=== PATIENT | male | born 1945 | race Caucasian/White ===

== ENCOUNTER → 2019-02-15 12:16 | Outpatient (ROUT) | payer OTHER, SELFPAY ==
[2019-02-15 12:21] LABS: Bacteria Urine None Seen
[2019-02-15 12:40] LABS: Add Manual Diff / Slide Review NO; Basophils Absolute Auto 0 /uL (0-100); Basophils Percent Auto 0.4 % (0-2); Blood Urea Nitrogen 14 mg/dL (9-20); Calcium 9.4 mg/dL (8.4-10.2); Carbon Dioxide 25 mmol/L (22-32); Chloride 103 mmol/L (98-107); Eosinophils Absolute Auto 100 /uL (0-450); Eosinophils Percent Auto 1.3 % (2-4); Estimated Glomerular Filt Rate > 60.0 mL/min (>60); Glucose 144 mg/dL (80-110); HEMOLYSIS < 15 (0-50); Hematocrit 43.6 % (41-53); Hemoglobin 14.8 g/dL (13.5-17.5); Lymphocytes Absolute Auto 800 /uL (1100-4500); Lymphocytes Percent Auto 18.2 % (25-40); Mean Corpuscular HGB Conc 33.9 % (30-36); Mean Corpuscular Hemoglobin 32.7 PG (26-34); Mean Corpuscular Volume 96.5 fL (80-100); Monocytes Absolute Auto 400 /uL (0-900); Monocytes Percent Auto 9.1 % (3-14); Neutrophils Absolute Auto 3200 /uL (1500-7000); Platelet Count 185 X10^3/uL (150-400); Red Blood Cell Count 4.52 X10^6/uL (4.5-5.9); Red Cell Distribution Width 12.8 % (11.6-14.8); Sodium 137 mmol/L (137-145); White Blood Cell Count 4.6 X10^3/uL (4.5-11.0)
[2019-02-15 12:52] LABS: Appearance Urine UA CLEAR; Bilirubin Urine UA NEGATIVE (NEGATIVE); Color Urine UA RED; Glucose Urine UA 1+ g/dL (Negative); Ketones Urine UA NEGATIVE (NEGATIVE); Leukocyte Esterase Urine UA NEGATIVE (NEGATIVE); Nitrite Urine UA NEGATIVE (Negative); Occult Blood Urine UA 3+ (Negative); Protein Urine UA 1+ (Negative); Specific Gravity Urine UA <=1.005 (1.000-1.035); Urobilinogen Urine UA 0.2 E.U./dL (0.2); pH Urine UA 5.5 (4.5-8.0)
[2019-02-15 13:04] LABS: RBC Urine 10-30/HPF (0-5/HPF); WBC Urine 0-1/HPF (0-5/HPF)
[2019-02-15 13:05] LABS: Culture Indicated Urine Cult Not Indicated; Red Blood Cell Casts Urine 1-5/LPF
== END ==
PROVIDERS: PCP Internal Medicine; Visit Provider Physician Assistant
DX: R31.9 Hematuria, unspecified (principal); E11.9 Type 2 diabetes mellitus without complications
CPT/HCPCS: 80048; 81001; 85025; 87086

== ENCOUNTER → 2019-02-22 08:37 | Outpatient (CLI) | payer OTHER, SELFPAY ==
--- NOTE | 2019-02-22 | DI.CT.S_ITS ---
PROCEDURE: CT ABDOMEN PELVIS WO CON INDICATIONS: ABDOMINAL PAIN TECHNIQUE: Noncontrast 5 mm thick sections acquired from the diaphragms to the symphysis. 5 mm coronal and sagittal reformats were then performed. For radiation dose reduction, the following was used: automated exposure control, adjustment of mA and/or kV according to patient size. COMPARISON: None. FINDINGS: Image quality: Excellent. ABDOMEN: Lung bases: Lung bases are clear. Heart size is normal. Solid organs: Liver is normal in size. Gallbladder is unremarkable. Pancreas is normal in contours. Spleen is normal in size. No adrenal nodules. Kidneys are normal in size, without hydronephrosis or nephrolithiasis. Peritoneum and bowel: Unenhanced bowel loops demonstrate normal wall thickness and caliber. The appendix is thin walled and gas filled. No free fluid or air. Nodes and vessels: No retroperitoneal or mesenteric adenopathy by size criteria. Aorta and inferior vena cava are normal in caliber. There are scattered atheromatous calcifications throughout the aorta and iliac arteries bilaterally. Miscellaneous: No ventral hernias. PELVIS: Genitourinary: The bladder is partially fluid-filled. There is a 2.2 x 1.5 x 1.6 cm mass within the right lateral bladder. Some rim calcification is visualized along the medial aspect of this mass. No other mass lesions visualized within the bladder. Miscellaneous: No inguinal hernias or adenopathy. Bones: No suspicious bony lesions. No vertebral body compression fractures. There is partial ankylosis of the bilateral sacroiliac joints. IMPRESSION: 1. Rim calcified mass within the right aspect of the bladder. Neoplasm cannot be excluded. Direct realization is recommended. 2. No acute intra-abdominal findings. Normal appendix. Dictated by: Colette Patricia M.D. on 02/22/2019 at 10:44 Approved by: Colette Patricia M.D. on 02/22/2019 at 12:03
== END ==
PROVIDERS: PCP Internal Medicine; Visit Provider Physician Assistant
DX: R10.9 Unspecified abdominal pain (principal); R31.0 Gross hematuria; N32.9 Bladder disorder, unspecified
CPT/HCPCS: 74176

== ENCOUNTER → 2019-11-12 10:36 | Outpatient (CLI) | payer OTHER, SELFPAY ==
[2019-11-12 11:32] LABS: Add Manual Diff / Slide Review NO; Basophils Absolute Auto 0 /uL (0-100); Basophils Percent Auto 0.5 % (0-2); Eosinophils Absolute Auto 100 /uL (0-450); Eosinophils Percent Auto 2.1 % (2-4); Hematocrit 44.9 % (41-53); Hemoglobin 15.1 g/dL (13.5-17.5); Lymphocytes Absolute Auto 1600 /uL (1100-4500); Lymphocytes Percent Auto 28.8 % (25-40); Mean Corpuscular HGB Conc 33.6 % (30-36); Mean Corpuscular Hemoglobin 32.1 PG (26-34); Mean Corpuscular Volume 95.6 fL (80-100); Monocytes Absolute Auto 500 /uL (0-900); Monocytes Percent Auto 9.4 % (3-14); Neutrophils Absolute Auto 3200 /uL (1500-7000); Neutrophils Percent Auto 59.2 % (50-75); Platelet Count 209 X10^3/uL (150-400); Red Cell Distribution Width 12.6 % (11.6-14.8); White Blood Cell Count 5.4 X10^3/uL (4.5-11.0)
[2019-11-12 11:56] LABS: Hemoglobin A1C% w Est Avg Glu 6.7 % (4.0-6.0)
[2019-11-12 11:59] LABS: Alanine Aminotransferase 31 IU/L (<50); Albumin 4.7 g/dL (3.5-5.0); Albumin Globulin Ratio 1.5 (1.0-2.8); Alkaline Phosphatase 47 U/L (38-126); Aspartate Aminotransferase 35 IU/L (17-59); BUN Creatinine Ratio 18.9 (6-22); Bilirubin Total 0.7 mg/dL (0.2-1.3); Blood Urea Nitrogen 18 mg/dL (9-20); Calcium 9.8 mg/dL (8.4-10.2); Carbon Dioxide 26 mmol/L (22-32); Chloride 105 mmol/L (98-107); Cholesterol 217 mg/dL (140-199); Estimated Glomerular Filt Rate > 60.0 mL/min (>60); Globulin 3.1 g/dL (1.7-4.1); Glucose 95 mg/dL (80-110); HDL Cholesterol 77 mg/dL (40-60); HEMOLYSIS 27 (0-50); LDL Cholesterol Calculated 109 mg/dL (<100); Potassium 4.5 mmol/L (3.4-5.1); Sodium 139 mmol/L (137-145); Total Protein 7.8 g/dL (6.3-8.2); Triglycerides 157 mg/dL (35-150)
== END ==
PROVIDERS: PCP Internal Medicine; Referring Provider Internal Medicine; Visit Provider Internal Medicine
DX: E11.9 Type 2 diabetes mellitus without complications (principal); E78.00 Pure hypercholesterolemia, unspecified
CPT/HCPCS: 36415; 80053; 80061; 83036; 85025

== ENCOUNTER → 2021-06-16 10:11 | Outpatient (CLI) | payer OTHER, SELFPAY ==
--- NOTE | 2021-06-16 | DI.RAD.S_ITS ---
PROCEDURE: XR LUMBAR SPINE 2-3V INDICATIONS: Lower back pain TECHNIQUE: 3 views of the lumbar spine were acquired. COMPARISON: [facility], CT, CT ABDOMEN PELVIS WO CON, 02/22/2019, 8:50. FINDINGS: Bones: 5 [id number] vertebrae are present. There is normal bony alignment. No vertebral body compression fractures. Facet arthrosis, most prominent at L4-S1. The disc space heights are maintained. Mild end plate osteophyte formation Soft tissues: Overlying bowel gas pattern is normal. No suspicious soft tissue calcifications. IMPRESSION: Lumbar spine degeneration as detailed above. Dictated by: Matt López M.D. on 06/16/2021 at 12:08 Approved by: Matt López M.D. on 06/16/2021 at 12:10
== END ==
PROVIDERS: PCP Student in an Organized Health Care Education/Training Program; Referring Provider Student in an Organized Health Care Education/Training Program; Visit Provider Student in an Organized Health Care Education/Training Program
DX: M47.26 Other spondylosis with radiculopathy, lumbar region (principal); M47.27 Other spondylosis with radiculopathy, lumbosacral region; G89.29 Other chronic pain
CPT/HCPCS: 72100

== ENCOUNTER → 2021-07-15 16:24 | Outpatient (CLI) | payer OTHER, SELFPAY ==
--- NOTE | 2021-07-15 | DI.MRI.S_ITS ---
PROCEDURE: MR LUMBAR SPINE WO CON INDICATIONS: SPINAL STENOSIS, LUMBAR REGION TECHNIQUE: Noncontrast sagittal T1 spin echo and T2 fast echo, sagittal STIR, and T2 fast spin echo through the lumbar spine. In cases with scoliosis, additional coronal T2 fast spin echo may be performed. COMPARISON: [facility], CR, XR LUMBAR SPINE 2-3V, 06/16/2021, 10:27. FINDINGS: Image quality: Excellent. Alignment and Curvature: Degenerative anterolisthesis of L4 on L5 measures 4 mm. The other vertebral bodies are normally aligned. Bone Marrow: Marrow is of normal overall signal. No acute vertebral body compression fractures. Spinal Cord: Conus medullaris terminates at the L1 level. Visualized cord demonstrates normal signal and size. Paraspinous Soft Tissues: No paravertebral masses. T12-L1: No canal stenosis or foraminal stenosis. L1-L2: No canal stenosis or foraminal stenosis. L2-L3: No canal stenosis or foraminal stenosis. L3-L4: Mild disc bulge. Facet hypertrophy. Mild canal stenosis. Mild bilateral foraminal stenosis. L4-L5: 4 mm anterolisthesis of L4 on L5. Diffuse disc bulge. Prominent bilateral facet hypertrophy. Severe or high-grade multifactorial canal stenosis. Moderate bilateral foraminal narrowing with mild flattening deformity on the exiting bilateral L4 nerve roots. L5-S1: Minimal disc bulge. Facet hypertrophy. Mild canal stenosis. Lexp-wb-[id number] bilateral foraminal stenosis. IMPRESSION: 1. There is severe or high-grade canal stenosis at L4-L5. There is also moderate bilateral foraminal stenosis at this level. 2. There is mild canal stenosis at L3-L4 and at L5-S1. Dictated by: Jalen Medley M.D. on 07/16/2021 at 8:21 Approved by: Jalen Medley M.D. on 07/16/2021 at 8:25
== END ==
PROVIDERS: PCP Student in an Organized Health Care Education/Training Program; Referring Provider Orthopaedic Surgery Orthopaedic Surgery of the Spine; Visit Provider Orthopaedic Surgery Orthopaedic Surgery of the Spine
DX: M48.061 Spinal stenosis, lumbar region without neurogenic claudication (principal); M48.07 Spinal stenosis, lumbosacral region
CPT/HCPCS: 72148

== ENCOUNTER → 2021-08-02 11:04 | Outpatient (CLI) | payer OTHER, SELFPAY ==
[2021-08-02 12:38] LABS: Add Manual Diff / Slide Review NO; Basophils Absolute Auto 0 /uL (0-100); Basophils Percent Auto 0.6 % (0-2); Eosinophils Absolute Auto 100 /uL (0-450); Eosinophils Percent Auto 2.1 % (2-4); Hematocrit 42.2 % (41-53); Hemoglobin 14.2 g/dL (13.5-17.5); Lymphocytes Absolute Auto 1500 /uL (1100-4500); Lymphocytes Percent Auto 28.1 % (25-40); Mean Corpuscular HGB Conc 33.6 % (30-36); Mean Corpuscular Hemoglobin 31.8 PG (26-34); Mean Corpuscular Volume 94.6 fL (80-100); Monocytes Absolute Auto 500 /uL (0-900); Monocytes Percent Auto 9.2 % (3-14); Neutrophils Absolute Auto 3300 /uL (1500-7000); Platelet Count 208 X10^3/uL (150-400); Red Blood Cell Count 4.47 X10^6/uL (4.5-5.9); Red Cell Distribution Width 12.9 % (11.6-14.8); White Blood Cell Count 5.5 X10^3/uL (4.5-11.0)
[2021-08-02 12:56] LABS: BUN Creatinine Ratio 20.4 (6-22); Blood Urea Nitrogen 21 mg/dL (9-20); Calcium 9.4 mg/dL (8.4-10.2); Carbon Dioxide 27 mmol/L (22-32); Chloride 102 mmol/L (98-107); Estimated Glomerular Filt Rate > 60 mL/min (>60); Glucose 139 mg/dL (80-110); HEMOLYSIS < 15 (0-50); Potassium 4.3 mmol/L (3.4-5.1); Sodium 137 mmol/L (137-145)
== END ==
PROVIDERS: PCP Student in an Organized Health Care Education/Training Program; Referring Provider Orthopaedic Surgery Orthopaedic Surgery of the Spine; Visit Provider Orthopaedic Surgery Orthopaedic Surgery of the Spine
DX: Z01.818 Encounter for other preprocedural examination (principal); Z01.812 Encounter for preprocedural laboratory examination
CPT/HCPCS: 36415; 80048; 85025; 93005; 93010

== ENCOUNTER → 2021-08-09 13:53 | Outpatient (CLI) | payer OTHER, SELFPAY ==
[2021-08-09 14:30] LABS: COVID19 -Nasal RAPID Negative (Negative)
== END ==
PROVIDERS: PCP Student in an Organized Health Care Education/Training Program; Referring Provider Orthopaedic Surgery Orthopaedic Surgery of the Spine; Visit Provider Orthopaedic Surgery Orthopaedic Surgery of the Spine
DX: Z20.822 Contact with and (suspected) exposure to COVID-19 (principal)
CPT/HCPCS: 87635; C9803

== ENCOUNTER 2021-08-12 13:57 | Observation (INO) | payer OTHER, SELFPAY ==
[2021-08-10 07:47] VITALS: BMI 28.0
[2021-08-11] VITALS (13 sets, daily range): BP systolic 90–151; BP diastolic 45–83; PULSE 68–81; RESP 12–20; TEMP 36.1–36.6; O2SAT 92–99; BMI 28.0
--- NOTE | 2021-08-11 | DI.RAD.S_ITS ---
PROCEDURE: XR LUMBAR SPINE 2-3V INDICATIONS: L4-5 TLIF TECHNIQUE: To views of the lumbar spine were acquired. COMPARISON: None. FINDINGS: Bones: Intraoperative images demonstrate postsurgical changes compatible with L4-L5 TLIF. Orthopedic hardware is in expected position. Orthopedic hardware is intact. Soft tissues: Overlying bowel gas pattern is normal. No suspicious soft tissue calcifications. IMPRESSION: Expected postsurgical change for L4-L5 TLIF. Dictated by: Elizabeth Villarreal MD, PhD on 08/11/2021 at 17:13 Approved by: Elizabeth Villarreal MD, PhD on 08/11/2021 at 17:14
[2021-08-11] MEDS: LACTATED RINGERS 1,000 ML 84 ML IV (10:40)
--- NOTE | 2021-08-11 11:49 | PM.PREOP ---
Pre-operative Note COVID-19 COVID-19 status: Negative Result date/Date tested (Pos, Neg/Pending): 08/10/21 Criteria for continued procedure: Expected advancement of disease process, Possibility delay results in more complex future surgery or treatment, Increased loss of function, Continuing or worsening of significant or severe pain, Deterioration of the patient's condition or overall health and Delay expected to result in less-positive ultimate med/surg outcome Interval Note History & Physical reviewed/Exam performed by Physician: Yes Changes to H&P: No
--- NOTE | 2021-08-11 12:10 | SUR.OPER ---
Prone on spine table, head in foam head support, padded chest and pelvic supports, gel pad at knees, lower legs supported by pillows; nipples, genitalia and toes free of pressure, arms secured on foam padded arm boards at <90 degrees abduction. Tape over blanket at thigh secured to table.
[2021-08-11] MEDS: CEFAZOLIN 2 GM/20 ML SYRINGE IV ×2 (12:59→20:41)
[2021-08-11] MEDS: BUPIVACAINE LIPOSOME 266 MG/20 ML VIAL INJ (13:51)
[2021-08-11] MEDS: BUPIVACAINE 0.25% (PF) 30 ML, EPINEPHrine 0.3 MG INJ (13:51)
--- NOTE | 2021-08-11 14:45 | P.OP_ITS ---
Operative Date/Time/Diagnoses Date of procedure: 08/11/21 Time of procedure: 12:45 Pre-op diagnosis: 1. L4-5 spinal stenosis with neurogenic claudication 2. L4-5 spondylosis with radiculopathy Post-op diagnosis: same Procedure & Clinicians Procedure: 1. L4-5 Postero-lateral and posterior interbody fusion 2. L4-5 interbody cage placement. 3. L4-5 decompressive laminectomy with bilateral facetecomies 4. L4-5 Posterior non-segmental instrumentation 5. [place] of bone marrow from iliac crest 6. Utilization of microsurgical technique and operating microscope Same procedure as scheduled: Yes Indications: Patient has been having chronic back pain and worsening lumbar radiculopathy. Patient failed multiple conservative management with worsening pain weakness and numbness in her lower extremity. Patient has been having difficulty performing activity of daily living. After discussing risks benefits of treatment options, patient elected proceed with surgery. Surgeon: Sandeep Goodman [employer] Consultant: Sunitha Archer Click Yes if Unassisted: No Anesthesia Type: General Operative Notes Closure Type: primary Specimen(s): none sent Prosthetic devices, grafts, tissues, transplants, or devices: Globus CREO MIS screws, Rise cage Blood products transfused: none Procedure in detail: Patient was seen in the preoperative area. Risks and benefits of the surgery was discussed with the patient. Informed consent was obtained from the patient and placed in the chart. Surgical site was marked. Patient was taken to the operative room. General anesthesia was administered. Prophylactic antibiotic was given to the patient less than 30 min before the incision was made. Patient was placed into a prone position on the [place] table. Patient's back was then prepped and draped in the sterile fashion. Time-out was performed at this time. Using AP and lateral C-arm imaging the interval between L4-5 was identified and marked on patient's back. A 2 inch incision 2 in from midline was made on the right side first. The fascia was incised in line with skin incision. Globus MARS retractors was placed inside the incision and docked onto the L4 lamina. Using microsurgical technique and operating microscope, a L4 laminectomy and L4- 5 facetectomy was performed using a Kerrison rongeur. The disc space at L4-5 was identified. And a total diskectomy was performed at L4-5 level. The total facetectomy laminectomy and diskectomy rendered L4-5 level grossly unstable and required a fusion procedure at the same time. The spinal canal and neural foramen was fully decompressed after the laminectomy facetectomy and diskectomy was completed. The endplates were decorticated using a rasp and shaver. The total diskectomy and decortication was performed at L4-5 level in order to to accomplish a L4-5 fusion. The local bone from the laminectomy and facetectomy was saved for local bone grafting. After the total diskectomy and decortication was completed, Trifecta bone graft material was combined with local bone that was harvested earlier. At this time, a separate skin is incision was made over the iliac crest. A Jamshidi needle was inserted into the iliac crest through a separate skin incision. 5 cc of bone marrow aspiration was obtained through the separate skin incision using a Jamshidi needle from the iliac crest. The bone marrow aspiration was combined with local bone and the Trifecta bone grafting material. The bone grafting material was placed into the L4-5 interbody space along with a expandable cage. The cage was expanded to its maximum height using the torque limiting screwdriver. At this time a mirror image incision was made on the left side. The fascia was incised in line with the skin incision. Globus MARS retractor was inserted and docked onto the L4-5 posterolateral gutter. Using the power drill, posterior- lateral decortication was performed at L4-5 level until bleeding cortical bone was identified. The remaining bone grafting material was placed into the L4-5 posterior lateral gutter he order to accomplish posterolateral fusion at the L4- 5 level. Using the double C-arm technique, pedicle screws were placed into the L4-5 pedicles bilaterally. This was done by placing the Jamshidi needle into the pedicles, then placing the guidewires over the Jamshidi needle, and finally placing the cannulated screws over the guidewires bilaterally. After the pedicle screws were placed, 2 titanium rods was locked into the heads of the pedicle screws using locking caps and torque limiting screwdriver. After all the hardware was placed, and confirmed with AP and lateral C-arm imaging, the wound was then irrigated with sterile normal saline and packed with Ray-Lilly gauze for 3 min to accomplish hemostasis. After the gauze was removed the deep fascia was closed with #1 Vicryl suture. The subcutaneous layer was closed with 2-0 Vicryl. The skin was closed with skin lyndsey. Patient tolerated the procedure well. There were no complications. Complications: none Post-operative Condition: stable Disposition: PACU Plan for aftercare: Admit to inpatient hospital
--- NOTE | 2021-08-11 15:21 | SUR.PHASEI ---
Hand-off/report to Raf Maravilla RN
--- NOTE | 2021-08-11 16:55 | PC.NURSE ---
Day shift: On unit from PACU at approx 1615. He is A&Ox4. Dressing on back is CDI. VS WNL. RA 97%. CMS intact. Oriented to room and call light. NO complaints of pain. Denies any nausea. Call light in reach. Tolerating SCD's. Instructed on I.S. use. Spouse in room for support. Will continue w/ post-op plan of care.
[2021-08-11] MEDS: SODIUM CHLORIDE 0.9% 1,000 ML 100 ML IV (17:01)
[2021-08-11] MEDS: METFORMIN HCL 500 MG TABLET 1000 MG PO (20:40)
[2021-08-11] MEDS: ATORVASTATIN 20 MG TABLET PO (20:40)
[2021-08-11] MEDS: ACETAMINOPHEN 325 MG TABLET 650 MG PO (20:40)
[2021-08-11] MEDS: DOCUSATE 100 MG CAPSULE PO (20:41)
[2021-08-11] MEDS: hydrOXYzine pamoate 25 MG CAPSULE PO (22:44)
[2021-08-12 04:00] VITALS: BP 124/75; PULSE 80; RESP 18; TEMP 36.4; O2SAT 93
[2021-08-12] MEDS: CEFAZOLIN 2 GM/20 ML SYRINGE IV (04:38)
[2021-08-12 05:57] LABS: Hematocrit 37.3 % (41-53); Hemoglobin 12.8 g/dL (13.5-17.5)
[2021-08-12 09:00] VITALS: BP 104/63; PULSE 93; RESP 18; TEMP 36.5; O2SAT 94
[2021-08-12] MEDS: ACETAMINOPHEN 325 MG TABLET 650 MG PO (09:00)
[2021-08-12] MEDS: METFORMIN HCL 500 MG TABLET 1000 MG PO (09:00)
[2021-08-12] MEDS: DOCUSATE 100 MG CAPSULE PO (09:00)
--- NOTE | 2021-08-12 09:28 | OT.IP.EVAL ---
Current Diagnoses Spondylolisthesis, lumbar region (08/11/21) Spinal stenosis, lumbar region with neurogenic claudication (08/11/21) Surgery Performed Operation Date: 08/11/21 11:45 Actual Procedures p L4-5 TLIF - Sandeep Goodman MD Past Medical History (Last Reviewed 08/11/21 @ 10:32 by Betina Charlton, RN) Bladder cancer (01/2019) Diabetes (2019) History of deviated nasal septum HLD (hyperlipidemia) Numbness and tingling of both feet Spinal stenosis Surgical History (Last Reviewed 08/11/21 @ 10:32 by Betina Charlton, RN) History of orthopedic surgery History of surgery (02/2019) History of tonsillectomy and adenoidectomy Occupational Therapy Inpatient Evaluation/Re-Eval M1 PT/OT-IP Prior Functional Status Start: 08/12/21 12:01 Freq: NEEDED Status: Active Protocol: Document 08/12/21 12:01 CGR (Rec: 08/12/21 12:36 CGR [id number]) Medical Review Prior Functional Status Medical History Reviewed Yes Communication Pt is an effective verbal communicator. Mobility and Gait Pt was IND in all functional mobility without AD. Activities of Daily Living and IADL's IND for all ADLs at baseline. 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 Social History Household Members spouse Living Arrangements House Number of Floors (Floors) Two Floors Number of Stairs To Enter/Railing? 2 steps from the garage, no railing 1 step from the front, no railing Home Environment High Toilet,Walk in Shower Home Equipment Front Wheel Walker,Straight Cane,Hand Held Shower Employment Status Retired Additional Social History Comment Pt lives with his Amanda. Pt states that his daughter owns a therapy clinic in [place]. M2 OT-IP Current Condition Start: 08/12/21 12:01 Freq: Status: Active Protocol: Document 08/12/21 12:01 CGR (Rec: 08/12/21 12:36 CGR [id number]) Occupational Therapy Current Condition Current Condition Evaluation Date 08/12/21 Treatment Diagnosis L4-5 TLIF Diagnosis Onset Date 08/11/21 Post Operative Precautions Lumbar Precautions Log Roll,No Twisting,Limit Bending,Lifting Restriction of 10 lbs,Gait Belt above Incisional Area M3 OT- IP Subjective and Pain Start: 08/12/21 12:01 Freq: Status: Active Protocol: Document 08/12/21 12:01 CGR (Rec: 08/12/21 12:36 R [id number]) OT- Subjective Occupational Therapy Visit Type Type Initial Evaluation Visit Start Time 09:03 Visit Stop Time 09:28 Total Visit Minutes 25 OT Pain Assessment Pain When Pain Assessed At Rest Pain Present Pain Present Denied Pain M4 OT- IP ADL's Start: 08/12/21 12:01 Freq: Status: Active Protocol: Document 08/12/21 12:01 CGR (Rec: 08/12/21 12:36 CGR [id number]) OT [id number] Comments OT Self-Feeding Comments Not meal time OT ADL-Grooming General Evaluation Grooming Ability Standby Assistance Areas Needing Assistance Retrieving/Set-up of Grooming Items,Face Washing Comments OT Grooming Comments standing at sink OT ADL-Oral Care General Eval Oral Care Ability Standby Assistance Areas of Assistance Brushing Teeth,Retrieving/Set- Up of Items Comments Oral Care Comments standing at sink OT ADL-Dressing General Eval Lower Body Dressing Ability Independent Areas Needing Assistance Socks Comments OT Dressing Comments Pt demonstrated that he is able to don and doff socks without equipment while maintaining his back precautions. Pt educated on how to don pants and underwear . OT ADL-Toileting General Evaluation Toileting Ability Standby Assistance OT ADL-Bathing Comments OT Bathing Comments not performed M5 OT- IP IADL's Start: 08/12/21 12:01 Freq: Status: Active Protocol: Document 08/12/21 12:01 CGR (Rec: 08/12/21 12:36 R [id number]) OT-Instrumental Activities of Daily Living Deficits IADL Deficits Identified No Deficits Home Safety Awareness Awareness of Need for Assistance at Home Good Awareness Ability to Problem Solve Emergency Able to Problem Solve Situations Medication Management Medication Management No Deficits Identified Money Management Money Management No Deficits Identified Meal Preparation Meal Preparation No Deficits Identified Magazine Journalist Magazine Journalist No Deficits Identified Driving Driving Comments Pt is an active truck driver heavy M6 OT- IP Functional Cognition Start: 08/12/21 12:01 Freq: Status: Active Protocol: Document 08/12/21 12:01 CGR (Rec: 08/12/21 12:36 R [id number]) Cognitive Factors Limiting Selfcare Function Cognitive Ability Level of Alertness Alert Patient Orientation Name,Age,Birthday,Month,Date, Year,Day of Week,Place, Situation Attention Span Ability Capable of Focused Attention, Capable of Sustained Attention Ability to Follow Commands Able to Follow Multi-Step Commands OT- Vision and Hearing OT- Hearing Assessment OT- Hearing Assessment WFL OT- Vision Assessment Visual Acuity Glasses All The Time Visual Attentiveness WFL Occular Pursuits WFL Visual Convergence WFL M7 OT- IP Mobility and Balance Start: 08/12/21 12:01 Freq: Status: Active Protocol: Document 08/12/21 12:01 CGR (Rec: 08/12/21 12:36 CGR [id number]) OT- Bed Mobility Assessment Rolling Type of Rolling Log Rolling Level of Assistance Minimal Assistance Supine to Sit Supine to Sit Assist Standby Assistance Scooting Scooting to Edge of Bed Standby Assistance OT-Transfer Assessment Sit to and From Stand Sit to and from Stand Standby Assistance Transfers Transfer Ability Standby Assistance Technique Transfer Destination Bed,Chair,Toilet Transfer Technique Stand Step Pivot Devices Transfer Assistive Devices Gait Belt,Front Wheeled Walker OT- Gait Assessment Gait Gait Assistance Required: Standby Assistance OT- Balance Assessment Sitting Balance and Reactions Static Sitting Balance Ability Normal Dynamic Sitting Balance Ability Normal M8 OT- IP Objective Assessments Start: 08/12/21 12:01 Freq: Status: Active Protocol: Document 08/12/21 12:01 CGR (Rec: 08/12/21 12:36 CGR [id number]) OT Gross Range of Motion Upper Extremity Range of Motion Assessment Within Functional Limits OT Strength Upper Extremity Strength Assessment Within Functional Limits OT- Coordination Assessment Upper Extremity Finger to Nose Test Within Functional Limits Finger Tapping Test Within Functional Limits OT-Muscle Tone Assessment Muscle Tone WNL Yes OT Sensation Assessment Edema Edema Absent M9 OT- IP Assessment and Plan Start: 08/12/21 12:01 Freq: Status: Active Protocol: Document 08/12/21 12:01 CGR (Rec: 08/12/21 12:36 R [id number]) OT Summary Assessment and Plan Potential Rehabilitation Potential Excellent Analytic Complexity at Evaluation Low Summary OT Impairments Bathing,Shower Transfers, Activity Tolerance Progress Towards Goals Progressing Toward Goals Assessment Summary Pt presents as a low complexity evaluation s/p admit for L4-5 TLIF. Pt is mobilizing well and states understanding of his back precautions. Pt would benefit from review of log roll and shower if pt stays. OK for d/c home with family support. Goals Bathing Goal Independent Shower Transfer Goal Independent Days to Meet Goals 1 Frequency of Treatment Frequency Of Treatment Once a Day Treatment Plan OT Treatment Plan ADL Training,Patient/Family Education,Discharge Planning Other Treatment Recommendations and Next shower and log roll Treatment Focus Discharge Recommendations OT Discharge Recommendations Home with Assistance Transportation Needs at Discharge Private Vehicle
--- NOTE | 2021-08-12 11:20 | PT.IIE ---
Current Diagnoses Spondylolisthesis, lumbar region (08/12/21) Spinal stenosis, lumbar region with neurogenic claudication (08/12/21) Surgery Performed Operation Date: 08/11/21 11:45 Actual Procedures p L4-5 TLIF - Sandeep Goodman MD Surgical History (Last Reviewed 08/12/21 @ 14:21 by Sunitha Archer PA-C) History of orthopedic surgery History of surgery (02/2019) History of tonsillectomy and adenoidectomy Medical History (Last Reviewed 08/12/21 @ 14:21 by Sunitha Archer PA-C) Bladder cancer (01/2019) Diabetes (2018) History of deviated nasal septum HLD (hyperlipidemia) Numbness and tingling of both feet Spinal stenosis Physical Therapy Inpatient Evaluation/Re-Eval M1 PT/OT-IP Prior Functional Status Start: 08/12/21 14:43 Freq: NEEDED Status: Active Protocol: Document 08/12/21 11:20 AB (Rec: 08/12/21 14:49 AB [id number]) Medical Review Prior Functional Status Medical History Reviewed Yes Communication able to make needs known Mobility and Gait pt stated that he is independent with all mobilities and ambulation without AD Activities of Daily Living and IADL's per OT's note: IND for all ADLs at baseline. Social History Household Members spouse Living Arrangements House Number of Floors (Floors) Two Floors Number of Stairs To Enter/Railing? pt stays on main level of the house 1 step to enter Home Environment High Toilet,Walk in Shower Home Equipment Front Wheel Walker,Straight Cane,Crutches,Shower Seat with Backrest,Hand Held Shower M2 PT-IP Current Condition Start: 08/12/21 14:43 Freq: NEEDED Status: Active Protocol: Document 08/12/21 11:20 AB (Rec: 08/12/21 14:49 AB [id number]) Physical Therapy Current Condition Current Condition Evaluation Date 08/12/21 Treatment Diagnosis s/p L4-5 TLIF; difficulty in walking Onset Date 08/11/21 M3 PT-IP Subjective Start: 08/12/21 14:43 Freq: NEEDED Status: Active Protocol: Document 08/12/21 11:20 AB (Rec: 08/12/21 14:49 AB [id number]) Subjective Physical Therapy Visit Type Type Initial Evaluation Visit Start Time 11:20 Visit Stop Time 11:42 Total Visit Minutes 22 Number of LEADLIGHTER Visits 0 Physical Therapy Visit Comments Patient Comments agreeable to do PT Therapy Pain Assessment Pain When Pain Assessed At Rest Pain Present Pain Present Pain Reported Location Back Intensity 1 Scale Used Numeric (0 - 10) Pain Management Techniques Distraction,Modification of Treatment,Timing of Activity with Medications M4 PT-IP Mobility and Gait Start: 08/12/21 14:43 Freq: NEEDED Status: Active Protocol: Document 08/12/21 11:20 AB (Rec: 08/12/21 14:49 AB [id number]) PT-Bed Mobility Assessment Rolling Type of Rolling Log Rolling Level of Assist Standby Assistance Supine to Sit Supine to Sit Standby Assistance Sit to Supine Sit to Supine Standby Assistance PT-Transfer Assessment Sit to and From Stand Sit to and from Stand Independent Equipment Transfer Assistive Device Gait Belt,Front Wheeled Walker Orthotic/Prosthetic Devices or Brace: No Transfers Transfer Destination Bed,Chair Transfer Technique ambulated Transfer Ability Level of Assist Standby Assistance Comments Mobility Comments reviewed back precautions with pt. pt completed sit to stand from chair SBA and ambulated to the bed using FWW SBA. completed log roll bed mobility sBA. agreed to do stair climbing. completed sit to stand from EOB SBA and ambulated towards platform step and completed up/down step using FWW SBA x 2 reps. pt ambulated in the hallway using FWW SBA ~ 100 ft. ambulated back to the room and sat back on the chair. positioned pt on the chair. call ight and table placed within reach. Gait Assessment Gait Gait Assistance Required: Standby Assistance Distance (Feet) 100 Able to Maintain Weight Bearing Status Yes During Gait Assistive Devices Assistive Device Gait Belt,Front Wheeled Walker Orthotic/Prosthetic Devices or Brace: No Gait Deviations General Gait Pattern Decreased Stride Length, Decreased Feet Clearance Factors Limiting Gait Function Factors Limiting Gait Function Decreased Activity Tolerance, Decreased Strength,Limited Range of Motion,Pain,Poor Balance,Poor Safety Awareness Stair Climbing Assessment Evaluation Level of Assist On Stairs Standby Assistance Devices Stair Climbing Assistive Devices Front Wheel Walker Technique/Endurance Stair Climbing Direction Ascend and Descend Stair Climbing Technique Step to Step Number of Steps Climbed 1 Query Text: Stair Climbing Set # Repetitions (reps) 2 PT-Balance Assessment Sitting Balance and Reactions Static Sitting Balance Ability Normal Dynamic Sitting Balance Ability Normal Standing Balance and Reactions Static Standing Balance Ability Fair Dynamic Standing Balance Ability Fair Device Used FWW M5 PT-IP Objective Assessments Start: 08/12/21 14:43 Freq: NEEDED Status: Active Protocol: Document 08/12/21 11:20 AB (Rec: 08/12/21 14:49 AB [id number]) Orientation Orientation/Cognition Level of Alertness Alert Orientation Name,Place,Situation Language Function Ability No Deficits Noted Safety Awareness Decreased Safety Awareness Memory Description No Deficits Noted Gross Range of Motion Lower Extremity ROM Assessment Within Functional Limits Strength Lower Extremity Strength Assessment Within Functional Limits Coordination Assessment Gross Coordination Gross Coordination WNL Sensation Assessment Sensation Gross Sensation WNL Muscle Tone Muscle Tone WNL Yes M6 PT-IP Treatment Start: 08/12/21 14:43 Freq: NEEDED Status: Active Protocol: Document 08/12/21 11:20 AB (Rec: 08/12/21 14:49 AB [email or web address]) Physical Therapy Treatment Education Education Provided Precautions,Weight Bearing Status,Safety M7 PT-IP Assessment and Plan Start: 08/12/21 14:43 Freq: NEEDED Status: Active Protocol: Document 08/12/21 11:20 AB (Rec: 08/12/21 14:49 AB [email or web address]) PT Summary Assessment and Plan Potential Rehabilitation Potential Good Status of Condition at Evaluation Stable Summary Impairments Pain,ROM,Strength,Balance, Coordination,Sensation,Tone, Cognition,Bed Mobility, Transfers,Gait,Activity Tolerance Assessment Summary pt requiring SBA with mobility and will have his spouse to assist him when needed. pt plans to go home today and may go home when medically stable . Goals Bed Mobility Goal Independent Transfer Goal Independent,Front Wheeled Walker Gait Goal Independent,Front Wheel Walker Gait Distance 300 Other Goals up/down 1 step using FWW mod I Days to Meet Goals 3 Frequency of Treatment Frequency Of Treatment Twice a Day Treatment Plan Physical Therapy Treatment Plan Bed Mobility Training,Transfer Training,Gait Training, Therapeutic Exercise,Balance Retraining,Post Op Education, Discharge Planning,Hot or Cold Pack,Neuromuscular Re-ed, Coordination Retraining,Manual Therapy Precautions Lumbar Precautions Log Roll,No Twisting,Limit Bending,Lifting Restriction of 10 lbs,Gait Belt above Incisional Area Recommendations To Nursing Amount of Assist Needed Standby Assistance Discharge Recommendations PT Discharge Recommendations Home with Assistance Transportation Needs at Discharge Private Vehicle
--- NOTE | 2021-08-12 12:31 | CM.DANOTE ---
Initial DCP Assessment Note Pt is a 76 yo male, resident of [place], now POD#1 from spinal surgery by Dr Goodman PCP: Suzi Garcia Payer: Lee EDDY Reviewed chart, pt discussed in multidisciplinary rounds this morning. Therapy evals are pending, according to patient plan is to return home w/support from spouse. Patient does not anticipate any needs from CM team No needs expected from DC planning team although will remain available in case this changes before DC RUBY Melo Discharge Planning/Care Management CM Discharge Assessment Start: 08/12/21 12:27 Freq: Status: Active Protocol: Document 08/12/21 12:27 AURA (Rec: 08/12/21 12:31 [id number]) Discharge Planning Assessment Assigned Chair Springer RUBY Olivas DPOA/Assigned Designee Name Amanda Saenz Contact Information [phone] cell [phone] home Advance Directives? Yes Advance Directives on File No History Provided By Patient,Significant Other, Medical Record Prior Living Arrangements House Household Members spouse Type of transportation used prior to Drives own vehicle admit Independent with ADL's Yes Is patient alert and oriented? Yes Needs Assistance With Home Chores / Shopping Patient/Family Preference OP PT Therapy Barriers to Discharge No Comment Awaiting therapies to clear. Patient hopeful to return home w/supportive spouse Discharge Plan Home Transportation Arrangement Spouse Referrals Initiated None needed
--- NOTE | 2021-08-12 14:19 | P.DS_ITS ---
History of Present Illness History of Present Illness Date Patient Seen: 08/12/21 Time Patient Seen: 14:20 Chief complaint: TLIF 08/11 *OPB* Narrative: Patient is complaining of very mild low back pain today. He is just using Tylenol and Vistaril. He is working with physical therapy. He denies any dizziness or lightheadedness. Overall he is feeling well and like to be discharged home today. Discharge Providers Provider Date of admission: 08/12/21 13:57 Discharge Date: 08/12/21 Primary care physician: Suzi Garcia PA-C Consults: 08/11/21 15:51 Consult to Occupational Therapy Evaluate & Treat Comment: Physician Instructions: Evaluate and treat Consult to Physical Therapy Evaluate & Treat Comment: Physician Instructions: Evaluate and Treat Discharge provider: Sunitha Archer PA-C Summary Hospital Course Discharge Diagnosis: 1. L4-5 spinal stenosis with neurogenic claudication 2. L4-5 spondylosis with radiculopathy Hospital Course: Operative Date/Time/Diagnoses Date of procedure: 08/11/21 Time of procedure: 12:45 Procedure & Clinicians Procedure: 1. L4-5 Postero-lateral and posterior interbody fusion 2. L4-5 interbody cage placement. 3. L4-5 decompressive laminectomy with bilateral facetecomies 4. L4-5 Posterior non-segmental instrumentation 5. [place] of bone marrow from iliac crest 6. Utilization of microsurgical technique and operating microscope Same procedure as scheduled: Yes Indications: Patient has been having chronic back pain and worsening lumbar radiculopathy. Patient failed multiple conservative management with worsening pain weakness and numbness in her lower extremity.? Patient has been having difficulty performing activity of daily living.? After discussing risks benefits of treatment options, patient elected proceed with surgery. Surgeon: Sandeep Goodman Line Cook: Sunitha Archer Click Yes if Unassisted: No Anesthesia Type: General Operative Notes Closure Type: primary Specimen(s): none sent Prosthetic devices, grafts, tissues, transplants, or devices: Globus CREO MIS screws, Rise cage Blood products transfused: none Status at Discharge Cognitive/behavioral status at discharge: at baseline, oriented Functional status at discharge: uses cane/walker Overall status at discharge: patient is progressing back to baseline Exam Vital Signs (past 8 hours): - 08/12/21 09:00 Temperature 97.7 F Pulse Rate 93 H Respiratory Rate 18 Blood Pressure 104/63 Pulse Oximetry 94 Oxygen Flow Rate 0 Oxygen Delivery Method Room Air Oxygen Flow Rate 0 Narrative Exam Narrative: Pleasant 76-year-old male, resting comfortably on the side of the bed, no acute distress. Dressing demonstrates some scant serosanguineous drainage, no surro unding erythema or induration. Bilateral lower extremity: Motor functions are grossly intact, sensation is grossly intact to light touch. Objective Labs Result Diagrams: 08/12/21 05:44 Labs: Laboratory Results - last 24 hr 08/12/21 05:44 Hgb 12.8 L Hct 37.3 L [facility] Medical History Bladder cancer (01/2019) Diabetes (2018) History of deviated nasal septum HLD (hyperlipidemia) Numbness and tingling of both feet Spinal stenosis Surgical History History of orthopedic surgery History of surgery (02/2019) History of tonsillectomy and adenoidectomy Social History household members: spouse Smoking Status: Former smoker alcohol intake: current Discharge Assessment & Plan Assessment and Plan Assessment: -stable status post L4-5 TLIF Plan of Treatment: -mobilize with PT and OT. Limit bending, lifting, twisting x6 weeks. Weightbearing as tolerated with front wheel walker -continue with multimodal pain management. We will add tramadol as he is not really taking narcotics at this time. -DC home when cleared by PT Discharge Plan Discharge Plan Patient Disposition: Home Discharge orders & Medications Prescriptions: New acetaminophen 500 mg capsule 500 mg PO Q4H MDD Max 3000 mg per day PRN (Reason: Pain, Mild (1-3)) Qty: 90 0RF docusate sodium 100 mg Capsule 100 mg PO BID PRN (Reason: Constipation from narcotic pain meds) Qty: 10 0RF hydroxyzine pamoate 25 mg Capsule 25 mg PO Q4HR PRN (Reason: Muscle spasm/pain/nausea) Qty: 40 0RF tramadol 50 mg Tablet 50 mg PO QID PRN (Reason: Pain, Moderate (4-6)) Qty: 20 0RF Continued metformin 500 mg Tablet 1,000 mg PO BID rosuvastatin 10 mg Tablet 10 mg PO BEDTIME Follow up/Referrals: Suzi Garcia PA-C [Primary Care Provider] - Sandeep Goodman MD [Physician] - (10-14 days for postoperative visit) Diet/Activity/Treatments Diet: Diet as Tolerated Other treatments: Medications: -OTC Tylenol 500 mg 1 tablet every 4 hours as needed for pain/fever. Max 6 tablets per day. -Tramadol 50 mg take 1 tablet every 4 hours as needed for moderate-severe pain (narcotic pain medication). -As needed medications: -Ducolax and /or MiraLax as needed for constipation from narcotic pain medications. -Pepcid AC as needed for stomach upset. -Vistaril (hydroxyine) 25mg 1 tab every 4 hours as needed for spasms/pain/nausea. Dressing/Wound care: -Keep dressing in place until postoperative follow-up office visit. -Okay to shower. Keep wound out of direct water stream. Can use PressNSeal plastic wrap to protect from shower stream. No soaking or submerging until all the scabs fall off (approximately 6 weeks). -Please call the office if dressing becomes wet, soiled, or saturated. Activities: -Limit bending, lifting, twisting x6 weeks. No deep bending (more than 90 degr ees) or twisting at the waist. No lifting > 20 pounds. -Walk frequently. -Weight-bearing as tolerated. Use front wheeled walker, and progress to cane when safe. -Continue with home exercises as directed by your physical therapist. -Ice your incision as needed for pain/inflammation/swelling. Protect your skin with a folded pillowcase. -Incentive Spirometer (breathing device from hospital): 5-10xs every hour while awake for the first 1-2 weeks. Follow-up: -Follow-up with your surgeon or PA in the office in 10-14 days after surgery. -Follow-up with your surgeon 6 weeks postoperatively. Call the office if you have chest pain, shortness of breath, significant swelling that will not resolve with elevating, fever over 101?, significantly worsening pain, or are concerned you might need to go to the Emergency Room. [facility]: [phone] Skin/Wound/Dressing Care Report to your healthcare provider any signs of infection, such as:: chills, fever, night sweats, unusual drainage and unusual redness Visit Report/Discharge Packet Instructions: How to Prevent Falls, DI for Transforaminal Lumbar Interbody Fusion Stand Alone Forms: Surgery Discharge Discharge Data Primary Care Provider: Suzi Garcia Attending Provider: Sandeep Goodman
--- NOTE | 2021-08-12 15:07 | PC.NURSE ---
Day shift: Paperwork signed and all questions answered. Pt's Spouse in room for d/c teachings. Remains steady on feet and pain reported as 03/08. Dressing changed today per PA and is CDI. Pt has all personal belongings. Left unit at approx 1500 via [facility]IC w/ DAVID Alexis. Pt's spouse is driving him home.
== END 2021-08-12 15:09 | disposition home or self-care (01) ==
PROVIDERS: Admitting Provider Orthopaedic Surgery Orthopaedic Surgery of the Spine; PCP Student in an Organized Health Care Education/Training Program; Referring Provider Orthopaedic Surgery Orthopaedic Surgery of the Spine; Visit Provider Orthopaedic Surgery Orthopaedic Surgery of the Spine
PROC: (CPT 22633; principal; 2021-08-11 11:45)
DX: M48.062 Spinal stenosis, lumbar region with neurogenic claudication (principal); M47.26 Other spondylosis with radiculopathy, lumbar region; E11.9 Type 2 diabetes mellitus without complications; Z79.84 Long term (current) use of oral hypoglycemic drugs; E78.5 Hyperlipidemia, unspecified
CPT/HCPCS: 22633; 22853; 63052; 20939; 22840; 36415; 72100; 76000; 82962; 85014; 85018; 94762; 97161; 97165; 97535; G0378; C9290; J0171; J0690; J1100; J1170; J2250; J2405; J2704; J3010